=== PATIENT | female | born 1995 ===

== ENCOUNTER 2020-11-24 13:14 | Emergency (ER) | payer SELFPAY ==
[~2020-11-24] VITALS: Ht 167.6 cm; Wt 60.0 kg
--- NOTE | 2020-11-24 13:33 | NUR ---
BELONGINGS COLLECTED AND SECURED IN LOCKER. ROOM SECURED FOR SAFETY, SITTER OUTSIDE OF ROOM.
--- NOTE | 2020-11-24 13:39 | NUR ---
PT ARRIVED ON LEGAL HOLD BY [employer].
--- NOTE | 2020-11-24 14:15 | NUR ---
PT PROVIDED URINE SAMPLE, LAB AT BEDSIDE.
[2020-11-24 14:34] LABS: BASOPHILS % (AUTO) 1 % (0-1); EOSINOPHILS % (AUTO) 1 % (1-7); LYMPHOCYTES % (AUTO) 39 % (22-44); MEAN CORPUSCULAR HEMOGLOBIN 30.3 pg (27.0-34.8); MEAN CORPUSCULAR HGB CONC 33.3 g/dL (32.4-35.8); MEAN PLATELET VOLUME 8.2 fL (7.4-10.4); MONOCYTES % (AUTO) 9 % (2-9); NEUTROPHILS % (AUTO) 51 % (42-75); PLATELET COUNT 297 x10^3/uL (130-400); RED BLOOD COUNT 4.88 x10^6/uL (3.82-5.3); RED CELL DISTRIBUTION WIDTH 14.2 % (9.6-15.2)
[2020-11-24 14:37] LABS: MICROSCOPIC INDICATED
[2020-11-24 14:42] LABS: AMPHETAMINE SCREEN, URINE Positive (Negative); BARBITURATE SCREEN, URINE Negative (Negative); BENZODIAZEPINE SCREEN, URINE Negative (Negative); CANNABINOID SCREEN, URINE Positive (Negative); COCAINE SCREEN, URINE Negative (Negative); METHADONE SCREEN, URINE Negative (Negative); OPIATE SCREEN, URINE Negative (Negative)
[2020-11-24 14:46] LABS: ALBUMIN 4.3 g/dL (3.4-5.0); ANION GAP 6 mmol/L (5-15); CALCIUM 9.6 mg/dL (8.5-10.1); CHLORIDE 107 mmol/L (98-107); CREATININE 1.07 mg/dL (0.55-1.02); SALICYLATE LEVEL 2.8 mg/dL (2.8-20.0)
[2020-11-24] MEDS ORDERED: OLANZAPINE 10 MG TABLET ONE (14:47)
[2020-11-24] MEDS: OLANZAPINE 10 MG TABLET PO SCH (14:50)
--- NOTE | 2020-11-24 15:10 | NUR ---
PROVIDED MEAL, SITTING UP IN BED EATING, ALL NEEDS MET AT THIS TIME. SITTER OUTSIDE OF ROOM FOR SAFETY.
--- NOTE | 2020-11-24 16:33 | NUR ---
PT RESTING ON GURTANYA, SITTER WATCHING FOR SAFETY.
--- NOTE | 2020-11-24 18:56 | NUR ---
PACKET FAXED TO [facility]
--- NOTE | 2020-11-24 18:57 | NUR ---
REPORT TO AJIT CONNOR.
--- NOTE | 2020-11-24 19:00 | NUR ---
Assumed care of pt at this time. Pt actively verbal, hallucinating. Stating that people are trying to pull her in through the power outlets. Pt cooperative, redirectable. Requested Dr. Day order PO medications to help combat pts hallucinations and delusions.
[2020-11-24] MEDS ORDERED: LORazepam 1MG TABLET ONE (19:17)
--- NOTE | 2020-11-24 19:22 | NUR ---
Gave pt 1mg PO Ativan, tolerated well. Provided pt with snacks and PO fluids.
[2020-11-24] MEDS ORDERED: LORazepam 1MG TABLET PO ONE (19:30)
--- NOTE | 2020-11-24 20:00 | NUR ---
Pt resting at this time. Continues to have auditory/visual hallucinations. Talking about meth, and about a man named Shaq. Will continue to monitor.
--- NOTE | 2020-11-24 20:45 | NUR ---
Patient resting at this time. Ativan took effect well patient more comfortable
--- NOTE | 2020-11-24 21:00 | NUR ---
Pt sleeping at this time. Denies needs. Sitter outside of room.
--- NOTE | 2020-11-24 22:00 | NUR ---
Pt sleeping at this time. Hallucinations have ceased. Pt under blankets, room secure. Resting comfortably.
--- NOTE | 2020-11-24 23:00 | NUR ---
Pt resting comfortably. Denies needs. Sleeping. Respirations even and unlabored.
--- NOTE | 2020-11-25 | NUR ---
Room check complete. Patient resting at this time in no obvious distress. Respirations even unlabored eyes closed. Sitter outside of room patient denies further needs we will continue to monitor.
--- NOTE | 2020-11-25 01:08 | NUR ---
Report to NIKOLAS Shen no further questions. Care relinquished.
--- NOTE | 2020-11-25 01:44 | NUR ---
REPORT FROM MELISSA ASSUMED CARE OF PT AT THIS TIME
--- NOTE | 2020-11-25 02:08 | NUR ---
PT RESTING ON GURTANYA, SITTER WATCHING FOR SAFETY.
--- NOTE | 2020-11-25 03:00 | NUR ---
pt sleeping in nad sitter at bedside
--- NOTE | 2020-11-25 05:21 | NUR ---
pt sleeping in nad sitter at bedside
--- NOTE | 2020-11-25 06:55 | NUR ---
RECEIVED REPORT FROM WENDY. PT SLEEPING ON GURNEY CALMLY, NAD WITH EQUAL CHEST RISE/FALL, NO NEEDS AT THIS TIME, PT REMAINS IN SAFE ENVIRONMENT, SITTER IN VIEW.
--- NOTE | 2020-11-25 08:03 | NUR ---
PT CONTINUES CALMLY SLEEPING ON GURNEY, NAD WITH EQUAL CHEST RISE/FALL, NO NEEDS AT THIS TIME, PT REMAINS IN SAFE ENVIRONMENT, SITTER IN VIEW.
--- NOTE | 2020-11-25 08:35 | NUR ---
BREAKFAST TRAY GIVEN
--- NOTE | 2020-11-25 09:00 | NUR ---
PT LAYING ON GURNEY WITH EYES CLOSED, AWAKENS & RESPONDS APPROP TO STAFF. NAD, COMFORT MEASURES PROVIDED, PT REMAINS IN SAFE ENVIRONMENT, SITTER IN VIEW. Addendum: 11/25/20 at 0917 by HENRRY PT LAYING ON GURNEY WITH EYES CLOSED, AWAKENS & RESPONDS APPROP TO STAFF. CALM & COOPERATIVE, NAD, COMFORT MEASURES PROVIDED, PT REMAINS IN SAFE ENVIRONMENT, SITTER IN VIEW.
--- NOTE | 2020-11-25 10:02 | NUR ---
PT CONTINUES LAYING ON GURNEY WITH EYES CLOSED, AWAKENS & RESPONDS APPROP TO STAFF. CALM & COOPERATIVE, NAD, NO NEEDS AT THIS TIME, REMAINS IN SAFE ENVIRONMENT, SITTER IN VIEW.
--- NOTE | 2020-11-25 11:04 | NUR ---
PT CALMLY SLEEPING ON GURNEY, NAD WITH EQUAL CHEST RISE/FALL, NO NEEDS AT THIS TIME, REMAINS IN SAFE ENVIRONMENT, SITTER IN VIEW.
--- NOTE | 2020-11-25 11:30 | NUR ---
SEEN BY PSYCH LUISANA CUMMINS.
[2020-11-25] MEDS ORDERED: OLANZAPINE 10 MG TABLET ONE (11:38)
[2020-11-25] MEDS: OLANZAPINE 10 MG TABLET PO SCH (11:42)
--- NOTE | 2020-11-25 12:02 | NUR ---
PT CONTINUES LAYING ON GURNEY WITH EYES CLOSED, AWAKENS APPROP TO VERBAL STIMULI; MOSTLY CALM & COOPERATIVE UNLESS DISCUSSING HER NAME- PT INSISTS NAME ON WRIST BAND IS WRONG DESPITE SSN VERIFIED BY REG & PT DOES NOT HAVE DOCUMENTATION LISTING ALT NAME SHE IS PROVIDING, REG TO CHANGE TO "REG" PT; NAD, COMFORT MEASURES PROVIDED, REMAINS IN SAFE ENVIRONMENT, SITTER IN VIEW.
--- NOTE | 2020-11-25 12:35 | NUR ---
LUNCH TRAY GIVEN
--- NOTE | 2020-11-25 13:00 | NUR ---
PT CALMLY LAYING ON GURNEY WITH EYES CLOSED, AWAKENS APPROP TO VERBAL STIMULI; NAD, NO NEEDS AT THIS TIME, REMAINS IN SAFE ENVIRONMENT, SITTER IN VIEW.
--- NOTE | 2020-11-25 14:02 | NUR ---
PT COTNINUES TO CALMLY LAY ON GURNEY WITH EYES CLOSED, AWAKENS APPROP TO VERBAL STIMULI; NAD, NO NEEDS AT THIS TIME, REMAINS IN SAFE ENVIRONMENT, SITTER IN VIEW.
--- NOTE | 2020-11-25 15:05 | NUR ---
PT CALMLY LAYING ON GURNEY WITH EYES CLOSED, AWAKENS APPROP TO VERBAL STIMULI; NAD, NO NEEDS AT THIS TIME, REMAINS IN SAFE ENVIRONMENT, SITTER IN VIEW.
--- NOTE | 2020-11-25 16:00 | NUR ---
PT CONTINUES TO CALMLY SLEEP ON GURNEY, NAD WITH EQUAL CHEST RISE/FALL, NO NEEDS AT THIS TIME, PT REMAINS IN SAFE ENVIRONMENT, SITTER IN VIEW.
--- NOTE | 2020-11-25 16:37 | NUR ---
DINNER TRAY GIVEN
--- NOTE | 2020-11-25 17:05 | NUR ---
PT CALMLY LAYING ON GURNEY WITH EYES CLOSED, AWAKENS APPROP TO VERBAL STIMULI; NAD, NO NEEDS AT THIS TIME, REMAINS IN SAFE ENVIRONMENT, SITTER IN VIEW.
--- NOTE | 2020-11-25 18:01 | NUR ---
PT CONTINUES LAYING ON GURNEY WITH EYES CLOSED, AWAKENS APPROP TO VERBAL STIMULI; CALM & COOPERATIVE, NAD, NO NEEDS AT THIS TIME, REMAINS IN SAFE ENVIRONMENT, SITTER IN VIEW.
--- NOTE | 2020-11-25 19:02 | NUR ---
REPORT GIVEN TO DAPHNEY CONNOR
--- NOTE | 2020-11-25 19:06 | NUR ---
PT SLEEPING IN BED, ALL NEEDS IN REACH, CALL LIGHT IN REACH, NAD AT THIS TIME, SITTER IN LINE OF SIGHT, GARAGE DOORS DOWN FOR PT SAFETY
--- NOTE | 2020-11-26 01:10 | NUR ---
REPORT RECIEVED FROM NIKOLAS SHELLEY. PT SLEEPING AT THIS TIME. RESP EVEN/UNLABORED. IN LINE OF SIGHT OF EVONNE
--- NOTE | 2020-11-26 02:53 | NUR ---
PT SLEEPING, RESP EVEN/UNLABORED. IN LINE OF SIGHT OF SITTER.
--- NOTE | 2020-11-26 04:17 | NUR ---
pt sleeping, resp even/unlabored, in line of sight of sitter.
--- NOTE | 2020-11-26 06:14 | NUR ---
PT GIVEN SOME JUICE PER REQUEST, REFUSED HOSPITAL BED AT THIS TIME. NO OTHER NEEDS, IN LINE OF SIGHT OF SITTER
--- NOTE | 2020-11-26 07:00 | NUR ---
LATE ENTRY, SBAR RPT REC'D AND ASSUMED PT CARE. PT SLEEPING, RESP EVEN, NON-LABORED. ROOM SECURED, PT W/I DIRECT LINE OF SIGHT OF SITTER.
[2020-11-26] MEDS ORDERED: OLANZAPINE ODT 10MG ONE (08:32)
[2020-11-26] MEDS: OLANZAPINE 10 MG TABLET PO SCH ×2 (08:41→21:00)
--- NOTE | 2020-11-26 08:43 | NUR ---
PT MED NOTED, SI MEAL TRAY PROVIDED AND SET UP FOR PT. ROOM SECURE AND SITTER WITH PT IN DIRECT LINE OF SITE. CALL LIGHT W/I REACH
--- NOTE | 2020-11-26 09:30 | NUR ---
LATE ENTRY, PT CONSUMED 100% OF BREAKFAST
--- NOTE | 2020-11-26 11:58 | NUR ---
SBAR ASSESSMENT REVIEWED WITH LUISANA RANDHAWA. LUISANA RANDHAWA AT BEDSIDE
--- NOTE | 2020-11-26 12:55 | NUR ---
LATE ENTRY, SBAR RPT TO NIKOLAS COHUDHURY
--- NOTE | 2020-11-26 12:57 | NUR ---
PT SLEEPING IN BED. BLANKET PULLED OVER HEAD.
--- NOTE | 2020-11-26 14:36 | NUR ---
PT SLEEPING IN BED. BLANKET PULLED OVER HEAD. SITTER AT DOOR
--- NOTE | 2020-11-26 16:46 | NUR ---
pt given crackers and peanut butter at request
--- NOTE | 2020-11-26 18:31 | NUR ---
MEAL TRAY GIVEN TO PT
--- NOTE | 2020-11-26 19:16 | NUR ---
ASSUMED CARE OF PATIENT FROM MACEY CONNOR. PATIENT SITTING IN BED COMFORTABLY, BELONGINGS ALREADY SECURED, ROOM SECURED, VSS, A/OX4, INDEPENDENT. PATIENT ASKING FOR APPLE JUICE AND SPRITE AT THIS TIME. pATIENT BROUGHT ITEMS REQUESTED
--- NOTE | 2020-11-26 20:33 | NUR ---
PATIENT LYING DOWN IN BED COMFORTABLY SLEEPING. NO CURRENT NEEDS AT THIS TIME
--- NOTE | 2020-11-26 21:03 | NUR ---
PATIENT LYING DOWN IN BED COMFORTABLY SLEEPING. NO CURRENT NEEDS AT THIS TIME
--- NOTE | 2020-11-26 22:05 | NUR ---
PATIENT LYING DOWN IN BED COMFORTABLY SLEEPING. NO CURRENT NEEDS AT THIS TIME
--- NOTE | 2020-11-26 23:04 | NUR ---
PATIENT LYING DOWN IN BED COMFORTABLY SLEEPING. NO CURRENT NEEDS AT THIS TIME
--- NOTE | 2020-11-27 00:08 | NUR ---
PATIENT LYING DOWN IN BED COMFORTABLY SLEEPING. NO CURRENT NEEDS AT THIS TIME
--- NOTE | 2020-11-27 00:41 | NUR ---
PATIENT LYING DOWN IN BED COMFORTABLY SLEEPING. NO CURRENT NEEDS AT THIS TIME
--- NOTE | 2020-11-27 01:14 | NUR ---
PATIENT LYING DOWN IN BED COMFORTABLY SLEEPING. NO CURRENT NEEDS AT THIS TIME
--- NOTE | 2020-11-27 02:16 | NUR ---
PATIENT LYING DOWN IN BED COMFORTABLY SLEEPING. NO CURRENT NEEDS AT THIS TIME
--- NOTE | 2020-11-27 03:03 | NUR ---
PATIENT LYING DOWN IN BED COMFORTABLY SLEEPING. NO CURRENT NEEDS AT THIS TIME
--- NOTE | 2020-11-27 04:14 | NUR ---
PATIENT LYING DOWN IN BED COMFORTABLY SLEEPING. NO CURRENT NEEDS AT THIS TIME
--- NOTE | 2020-11-27 05:12 | NUR ---
PATIENT LYING DOWN IN BED COMFORTABLY SLEEPING. NO CURRENT NEEDS AT THIS TIME
--- NOTE | 2020-11-27 06:26 | NUR ---
PATIENT LYING DOWN IN BED COMFORTABLY SLEEPING. NO CURRENT NEEDS AT THIS TIME
--- NOTE | 2020-11-27 06:56 | NUR ---
PATIENT REPORT FROM NIKOLAS BEST
--- NOTE | 2020-11-27 10:21 | NUR ---
PT DENIES SI/HI. PT DENIES ANY PHYSICAL COMPLAINT. PT VSS, PHYSICAL REASSESSMENT, AND SUICIDE REASSESSMENT COMPLETED. NAD. PT PROVIDED SNACKS AND DRINK. SITTER OUTSIDE ROOM IN DIRECT LINE OF SIGHT. ROOM SECURED.
[2020-11-27] MEDS ORDERED: OLANZAPINE 5 MG TABLET ONE (12:40)
[2020-11-27] MEDS: OLANZAPINE 5 MG TABLET PO SCH (12:42)
--- NOTE | 2020-11-27 14:06 | NUR ---
Sleeping, sitter in line of site.
--- NOTE | 2020-11-27 16:42 | NUR ---
Lunch tray given to pt with soda, crackers snacks. Sitter in line of site.
--- NOTE | 2020-11-27 19:05 | NUR ---
BEDSIDE REPORT RECEIVED FROM ARIAS CONNOR
--- NOTE | 2020-11-27 19:06 | NUR ---
PT SUPINE ON BED, RESTING COMFORTABLY AND CALMLY WITH EYES CLOSED. NO NEEDS AT THIS TIME. SAFETY PRECAUTIONS IN PLACE. SITTER IN VIEW. NO ADDITIONAL NEEDS AT HTIS TIME. AWAITING ADDITIONAL FOOD.
--- NOTE | 2020-11-27 20:30 | NUR ---
PT PROVIDED ADDITIONAL FOOD AND JUICE UPON REQUEST. NO ADDITIONAL NEEDS AT THIS TIME. SITTER IN VIEW, SAFETY PRECAUTIONS IN PLACE.
[2020-11-27] MEDS ORDERED: OLANZAPINE 10 MG TABLET ONE (20:58)
[2020-11-27] MEDS: OLANZAPINE 10 MG TABLET PO SCH (21:00)
--- NOTE | 2020-11-28 01:03 | NUR ---
report from Hayley CONNOR
--- NOTE | 2020-11-28 01:08 | NUR ---
BEDSIDE REPORT TO JIMENA CONNOR
--- NOTE | 2020-11-28 01:13 | NUR ---
Pt resting comfortably, appears to be sleeping. Respirations even and unlabored. SI precautions in place and sitter at doorway
--- NOTE | 2020-11-28 03:12 | NUR ---
Pt resting comfortably, appears to be sleeping. Respirations even and unlabored. SI precautions in place and sitter at doorway
--- NOTE | 2020-11-28 04:29 | NUR ---
Pt resting comfortably, appears to be sleeping. Respirations even and unlabored. SI precautions in place and sitter at doorway
--- NOTE | 2020-11-28 05:59 | NUR ---
Pt resting comfortably, appears to be sleeping. Respirations even and unlabored. SI precautions in place and sitter at doorway
--- NOTE | 2020-11-28 06:57 | NUR ---
REPORT TO KEELY CONNOR
--- NOTE | 2020-11-28 07:09 | NUR ---
REPORT FROM JIMENA CONNOR, ASSUME CARE OF PT AT THIS TIME. PT SLEEPING, SITTER AT DOORWAY.
--- NOTE | 2020-11-28 08:03 | NUR ---
PT UP/AMBULATORY TO BR. SITTER AT DOORWAY.
--- NOTE | 2020-11-28 08:37 | NUR ---
ED MEAL TRAY PROVIDED, PT SLEEPING/NAD, SITTER AT DOORWAY.
[2020-11-28] MEDS ORDERED: OLANZAPINE 5 MG TABLET ONE (08:58)
[2020-11-28] MEDS: OLANZAPINE 5 MG TABLET PO SCH (09:04)
--- NOTE | 2020-11-28 09:04 | NUR ---
PT AWAKE, EATING BREAKFAST. MED GIVEN PER ERP ORDER. PT UPDATED ON POC. PT VERBALIZED UNDERSTANDING AND THEN SAID, "THE ONLY THING THAT GETS ME RIGHT NOW IS WHEN MY UNCLE TRIES TO POSESS ME". PT STATES "I DON'T KNOW WHERE HE IS RIGHT NOW". PT PROVIDED ADDITIONAL SNACKS AND JUICE PER REQUEST. SITTER AT DOORWAY.
[2020-11-28 09:23] VITALS: BP 121/68
--- NOTE | 2020-11-28 10:35 | NUR ---
PT SLEEPING, NAD, SITTER AT DOORWAY. LUNCH TRAY ORDERED.
--- NOTE | 2020-11-28 11:40 | NUR ---
PT SLEEPING, NAD-EVEN RISE AND FALL OF CHEST. SITTER AT DOORWAY.
--- NOTE | 2020-11-28 12:34 | NUR ---
CASING COOKER IN TO REASSESS PT. PER CASING COOKER, PT TO BE DISCHARGED HOME. BELONGINGS RETURNED, AWAITING DC PAPERWORK.
[2020-11-28] MEDS ORDERED: OLAN5TAB69 PO (12:41)
== END 2020-11-28 13:01 | disposition home or self-care (01) ==
LOC: ED 15:57 → EDIP 21:29 → UNDOADMOB 21:29
DX: F15.950 Other stimulant use, unspecified with stimulant-induced psychotic disorder with delusions (principal); F15.951 Other stimulant use, unspecified with stimulant-induced psychotic disorder with hallucinations; R45.851 Suicidal ideations
CPT/HCPCS: 36415; 80048; 80299; 80307; 80320; 80329; 81001; 82040; 84703; 85025; 87077; 87086; 87186; 99285; G0480